=== PATIENT | male | born 1935 | race Caucasian/White ===

== ENCOUNTER 2019-08-17 05:09 | Inpatient (IN) | payer MEDICARE, BC ==
[2019-08-17] MEDS ORDERED: Albuterol Sulfate 2.5 mg/3 ml Neb ONE (05:25)
[2019-08-17] MEDS ORDERED: Furosemide 40 MG/4 ML VIAL ONE (05:31)
[2019-08-17 06:04] LABS: #Eosinphils 0.3 thou/uL (0.0-0.7); #Lymphocytes 1.7 thou/uL (1.20-3.40); #Monocytes 0.6 thou/uL (0.11-0.59); #Neutrophils 3.6 thou/uL (1.40-6.50); %Basophils 0.5 % (0.0-1.0); %Eosinophils 4.2 % (0.0-10.0); %Lymphocytes 27.7 % (21.0-51.0); %Monocytes 10.3 % (0.0-10.0); %Neutrophils 57.3 % (42.0-75.0); Hemoglobin 11.4 g/dL (14.0-18.0); Mean Corpuscular HGB CONC 33.1 g/dL (32.0-36.0); Mean Corpuscular Hemoglobin 31.4 pg (27.0-31.0); Mean Corpuscular Volume 94.6 fL (78.0-98.0); Mean Platelet Volume 8.9 fL (7.4-10.4); Platelet Count 153 thou/uL (130-400); RBC Distribution Width 13.6 % (11.5-14.5); Red Blood Cell (RBC) Count 3.65 mill/uL (4.70-6.10); White Blood Cell (WBC) Count 6.2 thou/uL (4.8-10.8)
[2019-08-17 06:25] LABS: ALT (SGPT) 20 U/L (8-55); AST (SGOT) 22 U/L (5-34); Albumin 3.9 g/dL (3.4-4.8); Alkaline Phosphatase 121 U/L (40-110); Anion Gap 13 mmol/L (10-20); BUN (Urea Nitrogen) 14 mg/dL (8.4-25.7); Bilirubin, Total 1.1 mg/dL (0.2-1.2); Calc. Creatinine Clearance 0 mL/min (70-130); Calcium 8.7 mg/dL (7.8-10.44); Carbon Dioxide 27 mmol/L (23-31); Chloride 102 mmol/L (98-107); Estimated GFR-MDRD 45; Globulin 2.3 g/dL (2.4-3.5); Glucose 125 mg/dL (83-110); Potassium 3.8 mmol/L (3.5-5.1); Protein, Total 6.2 g/dL (5.8-8.1); Sodium 138 mmol/L (136-145)
[2019-08-17] MEDS ORDERED: Senokot S 8.6-50 MG TAB PO PRN (07:39)
[2019-08-17] MEDS ORDERED: Ondansetron PF 4 MG/2 ML Vial IVP PRN (07:39)
[2019-08-17] MEDS ORDERED: Acetaminophen 325 MG TAB PO PRN (07:39)
--- NOTE | 2019-08-17 07:44 | RAD ---
EXAM: Single view of the chest HISTORY: Difficulty breathing COMPARISON: 10/13/2016 FINDINGS: Single view of the chest shows an enlarged but stable cardiomediastinal silhouette. The pa tient is status post sternotomy. There is a pacemaker with its leads in the right atrium and ventricle.. There appears to be a small left pleural effusion. The bones are unremarkable. IMPRESSION: Cardiomegaly and left pleural effusion.
[2019-08-17] MEDS ORDERED: Enoxaparin Sodium 40 MG/0.4 ML SYRINGE SC SCH (09:00)
[2019-08-17 09:33] LABS: Troponin I 0.021 ng/mL (< 0.028)
[2019-08-17] MEDS ORDERED: Enoxaparin Sodium 40 MG/0.4 ML SYRINGE ONE (10:08)
[2019-08-17 10:17] VITALS: BMI 32.1
[2019-08-17] MEDS ORDERED: Apixaban 5 MG TAB PO SCH ×2 (11:18→12:30)
[2019-08-17] MEDS ORDERED: Furosemide 40 MG/4 ML VIAL SLOW IVP SCH (11:30)
[2019-08-17 12:17] LABS: Troponin I Less than 0.010 ng/mL (< 0.028)
--- NOTE | 2019-08-17 13:01 | ULT ---
US Abdomen Limited: 08/17/2019 12:11 PM CLINICAL HISTORY: Abdominal swelling. Evaluate for ascites.. STUDY: Limited four-quadrant ultrasound of the abdomen COMPARISON: None. FINDINGS: A small amount of ascites is seen which is most prominent in the left upper quadrant of the abdomen. IMPRESSION: Small ascites
--- NOTE | 2019-08-17 17:38 | HP ---
CHIEF COMPLAINT: Shortness of breath. HISTORY OF PRESENT ILLNESS: The patient is an 83-year-old male, with a history of heart failure, recent stroke about 3 weeks ago, who presents to the hospital with complaints of shortness of breath. The patient states that last night he had a CPAP on and he felt that he could not take a deep breath. At this time, the patient got concerned and he came into the hospital. The patient, however, states that he also was wheezing all over, however, then he also states that he sometimes has bronchitis. He denies any fevers or chills. He recently got out of inpatient rehab after a stroke. The patient currently lives in an assisted living with his . , who is at the bedside, states that the patient has been feeling short of breath and he also has gained significant amount of weight all over. Denies any fevers or chills. He denies any shortness of breath on exertion. Denies any orthopnea or PND. PAST MEDICAL HISTORY: Has a history of recent stroke. I do not have the details since he was at [facility] for this. He also has history, which seems to be like of systolic heart failure. He also has a history of ventricular tachycardia and AFib. He has a history of hyperlipidemia and obesity. PAST SURGICAL HISTORY: He has had cardiac ablation. SOCIAL HISTORY: He denies any alcohol use, drug use, or smoking. He is a full code. Lives with his . REVIEW OF SYSTEMS: All negative except for the ones mentioned above in the HPI. ALLERGIES: HE HAS ALLERGIES TO EPINEPHRINE. HE STATED THAT CARDIOLOGY HAS ASKED HIM NOT TO USE IT. MEDICATIONS: He is on; 1. Allopurinol 100 mg daily. 2. Amiodarone 200 mg daily. 3. Aspirin 81 mg daily. 4. Atorvastatin 40 mg daily. 5. Eliquis 5 mg twice a day. 6. Lasix 40 mg daily. 7. Omeprazole 20 mg daily. 8. Sertraline 50 mg daily. 9. Tamsulosin 0.4 mg daily. PHYSICAL EXAMINATION: VITAL SIGNS: Temperature of 98.8, blood pressure 128/82, he is 97% on room air, and pulse rate of 80. GENERAL: He is awake, alert, and oriented x3. Does not appear in any distress. HEENT: Normocephalic, atraumatic. Pupils are equal and reactive to light. NECK: No lymphadenopathy noted. CARDIOVASCULAR: S1 and S2 present. No murmurs, rubs, or gallops. LUNGS: Clear to auscultation. No rhonchi or wheezes noted. ABDOMEN: Obese. Bowel sounds are present x2. No pain upon palpation. EXTREMITIES: He does have +2 lower extremity edema. NEUROVASCULAR: Neurovascular-cruz, he does have some weakness on his left side of upper and lower extremities. SKIN: No cuts, lesions, or bruises noted. LABORATORY RESULTS: WBCs of 6.2, hemoglobin of 11.4, hematocrit of 34.5, platelets of 153. Chemistry; sodium of 138, potassium 3.8, BUN of 14, and creatinine of 1.49. His BNP was 175.5. His troponins have been negative. Chest x-ray just indicated some right pleural effusion and cardiomegaly. His EKG was little strange and indicated beat of 143, which I do not think that is true. He is paced. ASSESSMENT AND PLAN: The patient is an 83-year-old male, who presents to the hospital with complaints of shortness of breath. 1. Shortness of breath, possible acute on chronic systolic heart failure, very mild. The patient recently had a stroke about 3 weeks ago. I will get records from [facility] and I do not want to repeat the echocardiogram. I will also interrogate his implantable cardioverter-defibrillator pacemaker. I will consult Cardiology also. The patient did receive Lasix in the ER. His blood pressure is very minimum. I will get an abdominal ultrasound to see if he has any ascites. The patient's states that he has gained a significant amount of weight. He has been watching his water intake, his salt intake, however, feels that he is still retaining a lot of fluids. 2. Recent stroke. I will continue his Eliquis. This was in his home medication. He does have significant left-sided deficits. 3. Generalized weakness. We will get Physical Therapy to evaluate the patient. The patient's stated that he is currently on the move going back to [place] that is where his family is. 4. Deep venous thrombosis prophylaxis. The patient is already on Eliquis. Job ID: [id number]
[2019-08-17] MEDS ORDERED: FLU VACC TS2019-20(65YR UP)/PF 180 MCG/0.5 ML SYRINGE IM ONE (18:30)
[2019-08-17] MEDS ORDERED: Prevnar 13-Val Conj/PF 0.5 ML SYRINGE IM ONE (18:30)
[2019-08-17] MEDS ORDERED: Benzonatate 100 MG CAP PO PRN (21:24)
[2019-08-17 21:45] LABS: Platelet Count 151 thou/uL (130-400)
[2019-08-17] MEDS: Apixaban 5 MG TAB PO SCH (21:46)
[2019-08-18 04:40] LABS: #Eosinphils 0.2 thou/uL (0.0-0.7); #Lymphocytes 0.9 thou/uL (1.20-3.40); #Monocytes 0.7 thou/uL (0.11-0.59); #Neutrophils 4.1 thou/uL (1.40-6.50); %Basophils 0.6 % (0.0-1.0); %Eosinophils 3.7 % (0.0-10.0); %Lymphocytes 14.6 % (21.0-51.0); %Monocytes 11.5 % (0.0-10.0); %Neutrophils 69.6 % (42.0-75.0); Hemoglobin 10.9 g/dL (14.0-18.0); Mean Corpuscular HGB CONC 33.3 g/dL (32.0-36.0); Mean Corpuscular Hemoglobin 31.3 pg (27.0-31.0); Mean Platelet Volume 8.9 fL (7.4-10.4); Platelet Count 159 thou/uL (130-400); RBC Distribution Width 13.8 % (11.5-14.5); Red Blood Cell (RBC) Count 3.47 mill/uL (4.70-6.10); White Blood Cell (WBC) Count 5.9 thou/uL (4.8-10.8)
[2019-08-18 05:00] LABS: Anion Gap 12 mmol/L (10-20); BUN (Urea Nitrogen) 14 mg/dL (8.4-25.7); Calc. Creatinine Clearance 66 mL/min (70-130); Calcium 9.1 mg/dL (7.8-10.44); Carbon Dioxide 27 mmol/L (23-31); Chloride 101 mmol/L (98-107); Estimated GFR-MDRD 53; Glucose 110 mg/dL (83-110); Potassium 3.4 mmol/L (3.5-5.1); Sodium 137 mmol/L (136-145)
[2019-08-18] MEDS ORDERED: Potassium Chloride 20 MEQ TAB PO SCH (08:45)
[2019-08-18] MEDS ORDERED: Furosemide 40 MG/4 ML VIAL SLOW IVP SCH (08:45)
[2019-08-18] MEDS: Aspirin 81 mg Enteric Coated Tablet PO SCH (08:46)
[2019-08-18] MEDS: Amiodarone 200 MG TAB PO SCH (08:46)
[2019-08-18] MEDS: Apixaban 5 MG TAB PO SCH ×2 (08:46→20:56)
[2019-08-18] MEDS: Tamsulosin HCl 0.4 MG CAP PO SCH (08:47)
[2019-08-18] MEDS ORDERED: Tamsulosin HCl 0.4 MG CAP PO SCH (09:00)
[2019-08-18] MEDS ORDERED: Carvedilol 3.125 MG TAB PO SCH (17:00)
--- NOTE | 2019-08-18 18:20 | CON ---
DATE OF CONSULTATION: 08/18/2019 PRIMARY SALON RECEPTIONIST: Dr. Conroy at [facility]. PRIMARY MODEL AND MOLD MAKER PLASTER: Isaiah Warner MD HISTORY OF PRESENT ILLNESS: Mr. Perez is an 83-year-old man with congestive heart failure. Mr. Perez is a gentleman who has a long history of congestive heart failure. He has been followed at the [facility] system. Therefore, we do not have a lot of details. He complains of increasing shortness of breath. Also has history of wheezing. No chest pain or pressure. PAST HISTORY: 1. History of stroke. 2. History of ventricular tachycardia. 3. History of atrial fibrillation. He has undergone ablation. SOCIAL HISTORY: No alcohol or tobacco. REVIEW OF SYSTEMS: Negative except as outlined above. MEDICATIONS: 1. Amiodarone 200 mg a day. 2. Aspirin 81 mg a day. 3. Eliquis 5 mg twice a day. 4. Lasix 40 mg a day orally. 5. Omeprazole. 6. Sertraline. 7. Tamsulosin. He is not on AMANUEL inhibitor or beta kathy. Reviewing the records, it looks like he did get hyperkalemia a couple of years ago that it is possibly related to an AMANUEL inhibitor, but I do not know with any certainty as we do not have those records. He said he stopped the beta-ktahy, because they made him feel like he could work out of heart. PHYSICAL EXAMINATION: GENERAL: This is a pleasant gentleman, in no distress. VITAL SIGNS: Blood pressure 113/70, pulse 80, it is regular. HEENT: Eyes sclerae. Nonicteric. Mouth; mucous membranes moist. NECK: Supple. No lymphadenopathy. LUNGS: Clear. No wheezing, rales, or rhonchi. CARDIAC: Normal S1, normal S2. There is no murmur, rub, or gallop. ABDOMEN: Obese, nontender. No hepatosplenomegaly. EXTREMITIES: Warm, dry. No clubbing or cyanosis. There is mild peripheral edema. IMAGING: Chest x-ray shows cardiomegaly with pulmonary vascular congestion. ASSESSMENT: 1. Congestive heart failure, probably systolic, acute on chronic. 2. Previous pacemaker defibrillator. 3. History of atrial fibrillation. 4. Stage 2 renal failure, now it is actually improved with creatinine improved up to 1.3. PLAN: 1. I told him he needs to be on a beta kathy. We will start low-dose carvedilol. 2. I would recommend a trial of Entresto to see if he can tolerate that from renal function standpoint, it would improve his prognosis and likely reduce hospitalization. 3. He will need to follow up with his road inspector, Dr. Conroy as an outpatient. Since we do not have any records, we will order echocardiogram. Job ID: [id number]
--- NOTE | 2019-08-18 19:35 | PDOC.HOSPP ---
- Subjective Encounter Date: 08/18/19 Encounter Time: 09:00 Subjective: pt up in bed asleep but easily arousable. - Objective Vital Signs & Weight: Vital Signs (12 hours) Temp Pulse Resp BP BP BP Pulse Ox 08/18/19 15:24 97.2 F L 78 15 128/82 92 L 08/18/19 12:00 98.8 F 84 14 113/70 92 L 08/18/19 09:25 125/80 134/72 08/18/19 07:43 97.6 F 80 16 100/67 94 L Pulse Ox 08/18/19 15:24 08/18/19 12:00 08/18/19 09:25 95 08/18/19 07:43 Weight Weight 230 lb 2.601 oz I&O: 08/17/19 08/18/19 08/19/19 06:59 06:59 06:59 Intake Total 100 240 Output Total 300 Balance -200 240 Result Diagrams: 08/18/19 04:08 08/18/19 04:08 Hospitalist ROS - Review of Systems Cardiovascular: denies: chest pain, palpitations, orthopnea, paroxysmal noc. dyspnea, edema, light headedness, other Gastrointestinal: denies: nausea, vomiting, abdominal pain, diarrhea, constipation, melena, hematochezia, other Genitourinary: denies: dysuria, frequency, incontinence, hematuria, retention, other - Medication Medications: Active Medications Generic Name Dose Route Start Last Admin Trade Name Freq PRN Reason Stop Dose Admin Amiodarone HCl 200 mg 08/18/19 09:00 08/18/19 08:46 Cordarone PO 200 mg DAILY LILY Administration Apixaban 5 mg 08/17/19 21:00 08/18/19 08:46 Eliquis PO 5 mg BID LILY Administration Aspirin 81 mg 08/18/19 09:00 08/18/19 08:46 Ecotrin PO 81 mg DAILY LILY Administration Benzonatate 100 mg 08/17/19 21:24 08/17/19 21:46 Tessalon PO 100 mg TIDPRN PRN Administration Cough Sodium Chloride 10 ml 08/17/19 21:00 08/18/19 08:47 Flush - Normal Saline IVF 10 ml Q12HR LILY Administration Tamsulosin HCl 0.4 mg 08/18/19 09:00 08/18/19 08:47 Flomax PO 0.4 mg DAILY LILY Administration - Exam Heart: negative: RRR, no murmur, no gallops, no rubs, normal peripheral pulses, irregular, diminshed peripheral pulses, murmur present, II/IV, III/IV Respiratory: negative: CTAB, no wheezes, no rales, no ronchi, normal chest expansion, no tachypnea, normal percussion, rales, rhonchi, tachypneic, wheezes Gastrointestinal: negative: soft, non-tender, non-distended, normal bowel sounds , no palpable masses, no hepatomegaly, no splenomegaly, no bruit, no guarding, no rigidity, tender to palpation, distended, diminished bowl sounds, voluntary guarding Extremities: 2+ LE edema Hosp A/P (1) Acute on chronic systolic (congestive) heart failure Code(s): I50.23 - ACUTE ON CHRONIC SYSTOLIC (CONGESTIVE) HEART FAILURE Status : Acute (2) HTN (hypertension) Code(s): I10 - ESSENTIAL (PRIMARY) HYPERTENSION Status: Acute (3) Obesity Code(s): E66.9 - OBESITY, UNSPECIFIED Status: Acute (4) Sleep apnea Code(s): G47.30 - SLEEP APNEA, UNSPECIFIED Status: Acute - Plan will get records from [facility]. continue diuretics. cardio consulted. fluid restriction. will get pt to see pt. He is on eliquis
[2019-08-19 05:20] LABS: Anion Gap 14 mmol/L (10-20); BUN (Urea Nitrogen) 17 mg/dL (8.4-25.7); Calc. Creatinine Clearance 59 mL/min (70-130); Calcium 9.2 mg/dL (7.8-10.44); Carbon Dioxide 25 mmol/L (23-31); Chloride 102 mmol/L (98-107); Estimated GFR-MDRD 46; Glucose 99 mg/dL (83-110); Potassium 3.9 mmol/L (3.5-5.1); Sodium 137 mmol/L (136-145)
[2019-08-19] MEDS ORDERED: Furosemide 40 MG/4 ML VIAL SLOW IVP SCH (09:00)
[2019-08-19] MEDS ORDERED: Carvedilol 3.125 MG TAB PO SCH ×2 (09:00→17:00)
[2019-08-19] MEDS: Aspirin 81 mg Enteric Coated Tablet PO SCH (10:04)
[2019-08-19] MEDS: Apixaban 5 MG TAB PO SCH ×2 (10:04→20:55)
[2019-08-19] MEDS: Amiodarone 200 MG TAB PO SCH (10:04)
[2019-08-19] MEDS: Tamsulosin HCl 0.4 MG CAP PO SCH (10:04)
--- NOTE | 2019-08-19 10:31 | PRG ---
DATE OF SERVICE: 08/19/2019 SUBJECTIVE: Mr. Perez states he had a good night. He said he had much less wheezing, and he feels better today. OBJECTIVE: VITAL SIGNS: His blood pressure is 130/76, pulse is 80. LUNGS: Clear. CARDIAC: Normal S1, normal S2. ABDOMEN: Soft, nontender. EXTREMITIES: Reveal only mild edema LABORATORY DATA: The patient's creatinine is higher today, it is 1.46, it was 1.49 on admission, 1.3 yesterday. ASSESSMENT: 1. Congestive heart failure, probably systolic, echocardiogram pending, acute on chronic. 2. Renal failure, slightly worse than yesterday, but the same as 2 days ago. PLAN: 1. Hold carvedilol today, he is going to start that, but we will hold off. 2. Continue the Entresto. 3. We will go ahead and give one dose of furosemide later today 20 mg IV. Job ID: [id number]
[2019-08-19] MEDS ORDERED: Furosemide 20 MG/2 ML VIAL SLOW IVP SCH (16:00)
--- NOTE | 2019-08-19 19:31 | PDOC.HOSPP ---
- Subjective Encounter Date: 08/19/19 Encounter Time: 09:45 Subjective: pt up in bed feels well. - Objective Vital Signs & Weight: Vital Signs (12 hours) Temp Pulse Pulse Pulse Resp BP BP 08/19/19 15:26 98.6 F 79 16 08/19/19 14:56 79 82 124/68 104/61 08/19/19 11:17 98.2 F 81 20 08/19/19 07:46 97.3 F L 80 20 BP Pulse Ox Pulse Ox Pulse Ox 08/19/19 15:26 124/68 94 L 08/19/19 14:56 94 L 94 L 08/19/19 11:17 120/68 94 L 08/19/19 07:46 130/76 96 Weight Weight 232 lb 6.4 oz I&O: 08/18/19 08/19/19 08/20/19 06:59 06:59 06:59 Intake Total 100 390 500 Output Total 300 Balance -200 390 500 Result Diagrams: 08/18/19 04:08 08/19/19 04:31 Hospitalist ROS - Review of Systems Respiratory: denies: cough, dry, shortness of breath, hemoptysis, SOB with excertion, pleuritic pain, sputum, wheezing, other Cardiovascular: denies: chest pain, palpitations, orthopnea, paroxysmal noc. dyspnea, edema, light headedness, other - Medication Medications: Active Medications Generic Name Dose Route Start Last Admin Trade Name Freq PRN Reason Stop Dose Admin Amiodarone HCl 200 mg 08/18/19 09:00 08/19/19 10:04 Cordarone PO 200 mg DAILY LILY Administration Apixaban 5 mg 08/17/19 21:00 08/19/19 10:04 Eliquis PO 5 mg BID LILY Administration Aspirin 81 mg 08/18/19 09:00 08/19/19 10:04 Ecotrin PO 81 mg DAILY LILY Administration Benzonatate 100 mg 08/17/19 21:24 08/17/19 21:46 Tessalon PO 100 mg TIDPRN PRN Administration Cough Sacubitril/Valsartan 1 tab 08/18/19 21:00 08/19/19 10:04 Entresto 24 Mg-26 Mg Tablet PO 1 tab BID LILY Administration Sodium Chloride 10 ml 08/17/19 21:00 08/19/19 10:04 Flush - Normal Saline IVF 10 ml Q12HR LILY Administration Tamsulosin HCl 0.4 mg 08/18/19 09:00 08/19/19 10:04 Flomax PO 0.4 mg DAILY LLIY Administration - Exam Heart: negative: RRR, no murmur, no gallops, no rubs, normal peripheral pulses, irregular, diminshed peripheral pulses, murmur present, II/IV, III/IV Respiratory: negative: CTAB, no wheezes, no rales, no ronchi, normal chest expansion, no tachypnea, normal percussion, rales, rhonchi, tachypneic, wheezes Gastrointestinal: negative: soft, non-tender, non-distended, normal bowel sounds , no palpable masses, no hepatomegaly, no splenomegaly, no bruit, no guarding, no rigidity, tender to palpation, distended, diminished bowl sounds, voluntary guarding Hosp A/P (1) Acute on chronic systolic (congestive) heart failure Code(s): I50.23 - ACUTE ON CHRONIC SYSTOLIC (CONGESTIVE) HEART FAILURE Status : Acute (2) HTN (hypertension) Code(s): I10 - ESSENTIAL (PRIMARY) HYPERTENSION Status: Acute (3) Obesity Code(s): E66.9 - OBESITY, UNSPECIFIED Status: Acute (4) Sleep apnea Code(s): G47.30 - SLEEP APNEA, UNSPECIFIED Status: Acute - Plan will get records from [facility]. continue diuretics. cardio consulted. fluid restriction. will get pt to see pt. He is on eliquis 08/19 pt feels well, is sleeping well. echo indicated low ef. pending records from [facility]. pt on entresto.
[2019-08-19] MEDS ORDERED: Atorvastatin Calcium 40 MG TAB PO SCH (21:00)
[2019-08-20 05:49] LABS: Anion Gap 9 mmol/L (10-20); BUN (Urea Nitrogen) 17 mg/dL (8.4-25.7); Calc. Creatinine Clearance 63 mL/min (70-130); Calcium 8.6 mg/dL (7.8-10.44); Carbon Dioxide 28 mmol/L (23-31); Chloride 105 mmol/L (98-107); Estimated GFR-MDRD 50; Glucose 107 mg/dL (83-110); Potassium 3.4 mmol/L (3.5-5.1); Sodium 139 mmol/L (136-145)
[2019-08-20] MEDS: Amiodarone 200 MG TAB PO SCH (08:33)
[2019-08-20] MEDS: Apixaban 5 MG TAB PO SCH (08:33)
[2019-08-20] MEDS: Aspirin 81 mg Enteric Coated Tablet PO SCH (08:33)
[2019-08-20] MEDS: Tamsulosin HCl 0.4 MG CAP PO SCH (08:34)
[2019-08-20] MEDS ORDERED: Potassium Chloride 20 MEQ TAB PO SCH (08:45)
[2019-08-20] MEDS ORDERED: Allopurinol 100 MG TAB PO SCH (09:00)
[2019-08-20 11:21] VITALS: BP 112/69; TEMP 98.2
--- NOTE | 2019-08-21 11:49 | DIS ---
DATE OF ADMISSION: 08/17/2019 DATE OF DISCHARGE: 08/20/2019 DISCHARGE DIAGNOSES: 1. Acute on chronic systolic heart failure. 2. Shortness of breath. 3. Falls. 4. Sleep apnea. 5. Obesity. 6. Mild acute kidney injury. HOSPITAL COURSE: The patient is a very pleasant 83-year-old male, who recently had a stroke about a couple of weeks ago, was treated at [facility], who presented to the hospital with shortness of breath. Initially, the patient stated that he had some issues with a CPAP machine; however, after talking to the patient's family members, stated that he has been having ongoing shortness of breath. The patient initially was put on IV diuretics. He was seen by Cardiology and an echocardiogram was ordered. Upon further talking to the patient's family, the patient's daughter in-law, she stated that the patient has been actually recommending his own treatment when he has been going to his physicians. According to the patient's [id number], he has not been taking his medications as prescribed. She thinks that is probably most likely why he had a stroke. The patient does have a history of atrial fibrillation. The patient at this time was optimized on his medications. He was started on Entresto and also was given IV diuretics which he had great effect with. The patient felt better. At this time, he was discharged home. He will follow up with his director strategic account management, he has an appointment on . His EF indicated 15% to 20%, paradoxical septal motion with left atrium is severely dilated. Mild mitral regurgitation is present and he had some mild aortic insufficiency. During his hospital stay, his creatinine did go up a little bit; however, on discharge, he was trending downward. His last creatinine on discharge was 1.37. Again, this was most likely secondary to his diuretics and also patient being started on Entresto. HOME MEDICATIONS: Will be as of the followin. Sertraline one tablet daily. 2. Allopurinol 2 tablets daily. 3. Atorvastatin 40 mg at bedtime. 4. Eliquis 5 mg b.i.d. 5. Tamsulosin one capsule p.o. daily. 6. Amiodarone 200 mg daily. 7. Aspirin 81 mg daily. 8. Torsemide 20 mg daily. 9. Entresto 1 tablet p.o. b.i.d. PHYSICAL EXAMINATION: VITAL SIGNS: Temperature 98.2, pulse 82, respirations 20, 92%, and blood pressure 112/69. GENERAL: He is awake, alert, and oriented x3. Does not appear in distress. CV: S1 and S2 present. No murmurs, rubs, or gallops. ABDOMEN: Soft and nontender. Bowel sounds are present x2. EXTREMITIES: No edema. Again, the patient will be discharged home. He will follow up with his primary and also with his director strategic account management. Job ID: [id number]
== END 2019-08-20 12:25 | disposition home or self-care (01) | DRG 291 ==
LOC: ERS 05:09 → ERHOLD 06:58 → 2NO 17:33
PROVIDERS: ADMIT Internal Medicine; ATTEND Internal Medicine
DX: I13.0 Hypertensive heart and chronic kidney disease with heart failure and stage 1 through stage 4 chronic kidney disease, or unspecified chronic kidney disease (principal); I50.23 Acute on chronic systolic (congestive) heart failure; N17.9 Acute kidney failure, unspecified; J44.9 Chronic obstructive pulmonary disease, unspecified; E66.9 Obesity, unspecified; E87.5 Hyperkalemia; G47.33 Obstructive sleep apnea (adult) (pediatric); N18.2 Chronic kidney disease, stage 2 (mild); I35.1 Nonrheumatic aortic (valve) insufficiency; E78.5 Hyperlipidemia, unspecified; I48.91 Unspecified atrial fibrillation; Z79.01 Long term (current) use of anticoagulants; W18.30XA Fall on same level, unspecified, initial encounter; Z86.73 Personal history of transient ischemic attack (TIA), and cerebral infarction without residual deficits; Z68.31 Body mass index [BMI] 31.0-31.9, adult
CPT/HCPCS: 36415; 71045; 76705; 80048; 80053; 83880; 84484; 85025; 90471; 90662; 93005; 93306; 93798; 94640; 94760; 96374; G0008; J1650; J1940; J7611; J7620